=== PATIENT | male | born 1970 | race Caucasian/White ===

== ENCOUNTER 2019-01-01 22:42 | Emergency (ER) | payer MEDICAID ==
[~2019-01-01] VITALS: Ht 165.1 cm; Wt 75.0 kg
[2019-01-02 00:17] LABS: CHLORIDE 112 mEq/L (98-107)
[2019-01-02 00:29] LABS: ETHANOL BLOOD 416 mg/dL
[2019-01-02 00:36] LABS: BASOPHILS % 0.8 % (0.0-2.0); EOSINOPHILS % 4.3 % (0.0-5.0); LYMPHOCYTES % 47.4 % (20.0-50.0); MEAN CORPUSCULAR HEMOGLOBIN 29.2 pg (28.0-32.0); MEAN CORPUSCULAR VOLUME 90.4 fL (80.0-94.0); MEAN PLATELET VOLUME 11.9 fl (7.4-10.4); MONOCYTES % 12.9 % (2.0-8.0); NEUTROPHILS % 34.6 % (40.0-76.0); RED BLOOD CELL COUNT 3.43 mill/uL (4.7-6.1); RED CELL DISTRIBUTION WIDTH 21.6 % (11.6-14.6)
[2019-01-02 00:53] LABS: PLATELET 33 x1000/uL (130-400)
[2019-01-02 06:48] VITALS: BP 115/77
== END 2019-01-02 06:53 | disposition home or self-care (01) ==
LOC: EDBD 22:42 → ER 22:42
DX: F10.129 Alcohol abuse with intoxication, unspecified (principal); D69.6 Thrombocytopenia, unspecified; R41.82 Altered mental status, unspecified
CPT/HCPCS: 36415; 70450; 71045; 80053; 80320; 82962; 85025; 99284; Z7610; G0480

== ENCOUNTER 2019-10-18 14:49 | Emergency (ER) | payer MEDICAID ==
[~2019-10-18] VITALS: Ht 177.8 cm; Wt 89.0 kg
[2019-10-18 15:02] VITALS: BP 132/89
== END 2019-10-18 15:39 | disposition left against medical advice (07) ==
LOC: ER 14:49
DX: F10.229 Alcohol dependence with intoxication, unspecified (principal); Z98.890 Other specified postprocedural states; Z79.899 Other long term (current) drug therapy; Y90.9 Presence of alcohol in blood, level not specified
CPT/HCPCS: 99283

== ENCOUNTER 2020-11-15 21:05 | Emergency (ER) | payer MEDICAID ==
[~2020-11-15] VITALS: Ht 162.6 cm; Wt 82.0 kg
[2020-11-16] MEDS ORDERED: SODIUM CHLORIDE 0.9% 1,000 ML IV ONE (00:45)
[2020-11-16 00:59] LABS: HEMATOCRIT. 33.8 % (42.0-52.0); HEMOGLOBIN. 11.1 g/dL (14.0-18.0); MEAN CORPUSCULAR HEMOGLOBIN 28.8 pg (28.0-32.0); MEAN CORPUSCULAR VOLUME 87.9 fL (80.0-94.0); MEAN PLATELET VOLUME 11.4 fl (7.4-10.4); RED BLOOD CELL COUNT 3.85 mill/uL (4.7-6.1); RED CELL DISTRIBUTION WIDTH 18.8 % (11.6-14.6)
[2020-11-16 01:01] LABS: CHLORIDE 110 mEq/L (98-107)
[2020-11-16 01:11] LABS: PLATELET 30 x1000/uL (130-400)
[2020-11-16 01:13] LABS: ETHANOL BLOOD 336 mg/dL
[2020-11-16 02:00] LABS: PLATELET ESTIMATE MARKEDLY DECREASED
[2020-11-16 02:31] LABS: *AMPHETAMINES SCREEN URINE NEGATIVE (NEGATIVE); *BARBITURATES SCREEN URINE NEGATIVE (NEGATIVE)
[2020-11-16 02:33] LABS: *BENZODIAZEPINES SCREEN URINE NEGATIVE (NEGATIVE); *COCAINE SCREEN URINE NEGATIVE (NEGATIVE); CANNABINOID URINE SCREEN NEGATIVE (NEGATIVE); METHADONE URINE SCREEN NEGATIVE (NEGATIVE); OPIATES URINE SCREEN NEGATIVE (NEGATIVE); PHENCYCLIDINE URINE SCREEN NEGATIVE (NEGATIVE)
[2020-11-16 05:40] VITALS: BP 114/74
== END 2020-11-16 05:40 | disposition home or self-care (01) ==
LOC: ER 21:09
DX: F10.129 Alcohol abuse with intoxication, unspecified (principal); Y90.7 Blood alcohol level of 200-239 mg/100 ml; E11.9 Type 2 diabetes mellitus without complications
CPT/HCPCS: 36415; 70450; 80053; 80305; 80320; 82962; 85025; 93005; 96360; 99285; J7030; G0480

== ENCOUNTER 2020-11-20 11:12 | Emergency (ER) | payer MEDICAID ==
[~2020-11-20] VITALS: Ht 172.7 cm; Wt 77.0 kg
[2020-11-20] MEDS ORDERED: ONDANSETRON HCL 4MG/2ML INJ IV STA (12:57)
[2020-11-20 13:00] LABS: BASOPHILS % 0.5 % (0.0-2.0); EOSINOPHILS % 3.4 % (0.0-5.0); HEMATOCRIT. 40.2 % (42.0-52.0); HEMOGLOBIN. 13.2 g/dL (14.0-18.0); MEAN CORPUSCULAR HEMOGLOBIN 29.3 pg (28.0-32.0); MEAN CORPUSCULAR VOLUME 89.3 fL (80.0-94.0); MEAN PLATELET VOLUME 6.9 fl (7.4-10.4); MONOCYTES % 10.6 % (2.0-8.0); NEUTROPHILS % 46.5 % (40.0-76.0); RED CELL DISTRIBUTION WIDTH 19.7 % (11.6-14.6)
[2020-11-20] MEDS ORDERED: SODIUM CHLORIDE 0.9% 1,000 ML IV ONE (13:00)
[2020-11-20] MEDS ORDERED: ACETAMINOPHEN 325MG TABLET PO ONE (13:00)
[2020-11-20 13:11] LABS: PROTHROMBIN TIME 10.5 sec (9.6-11.0)
[2020-11-20 13:56] LABS: PLATELET ESTIMATE MARKEDLY DECREASED
[2020-11-20 13:58] LABS: PLATELET 18 x1000/uL (130-400)
[2020-11-20 15:39] LABS: CHLORIDE 111 mEq/L (98-107)
[2020-11-20 15:51] LABS: ETHANOL BLOOD 361 mg/dL
[2020-11-20 16:58] LABS: CLARITY URINE CLEAR (CLEAR); COLOR URINE YELLOW (YELLOW); KETONES URINE NEGATIVE (NEGATIVE); LEUKOCYTE ESTERASE URINE NEGATIVE (NEGATIVE); NITRITE URINE NEGATIVE (NEGATIVE); OCCULT BLOOD URINE NEGATIVE (NEGATIVE); PROTEIN URINE NEGATIVE (NEGATIVE); SPECIFIC GRAVITY URINE 1.018 (1.005-1.030)
[2020-11-20 17:12] LABS: *BARBITURATES SCREEN URINE NEGATIVE (NEGATIVE); *BENZODIAZEPINES SCREEN URINE NEGATIVE (NEGATIVE)
[2020-11-20 17:14] LABS: *AMPHETAMINES SCREEN URINE NEGATIVE (NEGATIVE); *COCAINE SCREEN URINE NEGATIVE (NEGATIVE); CANNABINOID URINE SCREEN NEGATIVE (NEGATIVE); METHADONE URINE SCREEN NEGATIVE (NEGATIVE); OPIATES URINE SCREEN NEGATIVE (NEGATIVE); PHENCYCLIDINE URINE SCREEN NEGATIVE (NEGATIVE)
[2020-11-20 17:58] VITALS: BP 107/58
== END 2020-11-20 18:35 | disposition home or self-care (01) ==
LOC: ER 11:12
DX: R51.9 Headache, unspecified (principal); F10.129 Alcohol abuse with intoxication, unspecified; R47.81 Slurred speech; E11.9 Type 2 diabetes mellitus without complications; E86.0 Dehydration; Y90.8 Blood alcohol level of 240 mg/100 ml or more
CPT/HCPCS: 36415; 70450; 71045; 80053; 80305; 80320; 81003; 83690; 84484; 85025; 85610; 96361; 96374; 99285; J2405; J7030; G0480

== ENCOUNTER 2021-09-23 17:35 | Emergency (ER) | payer MEDICAID ==
[~2021-09-23] VITALS: Ht 167.6 cm; Wt 68.0 kg
[2021-09-23 17:39] VITALS: BP 130/80
== END 2021-09-23 18:25 | disposition left against medical advice (07) ==
LOC: ER 17:35
DX: Z53.21 Procedure and treatment not carried out due to patient leaving prior to being seen by health care provider (principal); E11.9 Type 2 diabetes mellitus without complications; I10 Essential (primary) hypertension; Z88.6 Allergy status to analgesic agent; Z86.19 Personal history of other infectious and parasitic diseases

== ENCOUNTER 2022-06-03 19:37 | Emergency (ER) | payer MEDICAID ==
[~2022-06-03] VITALS: Ht 177.8 cm; Wt 80.0 kg
[2022-06-03] MEDS ORDERED: VISCOUS LIDOCAINE 2% 15 ML UDC PO STA (21:45)
[2022-06-03] MEDS ORDERED: SODIUM CHLORIDE 0.9% 1,000 ML IV ONE (21:45)
[2022-06-03] MEDS ORDERED: DICYCLOMINE 10 MG/5 ML ORAL SYR PO STA (21:45)
[2022-06-03] MEDS ORDERED: FAMOTIDINE 20MG/2ML VIAL IV STA (21:45)
[2022-06-03] MEDS ORDERED: MAGNESIUM/ALUMINUM HYDROXIDE/SIMETHICONE 30ML UDC PO STA (21:45)
[2022-06-03 23:27] LABS: BASOPHILS % 0.6 % (0.0-2.0); EOSINOPHILS % 3.9 % (0.0-5.0); HEMATOCRIT. 36.2 % (42.0-52.0); HEMOGLOBIN. 11.6 g/dL (14.0-18.0); LYMPHOCYTES % 41.8 % (20.0-50.0); MEAN CORPUSCULAR HEMOGLOBIN 30.4 pg (28.0-32.0); MEAN CORPUSCULAR VOLUME 94.9 fL (80.0-94.0); MEAN PLATELET VOLUME 11.6 fl (7.4-10.4); MONOCYTES % 13.3 % (2.0-8.0); NEUTROPHILS % 40.4 % (40.0-76.0); PLATELET 96 x1000/uL (130-400); RED BLOOD CELL COUNT 3.82 mill/uL (4.7-6.1); RED CELL DISTRIBUTION WIDTH 18.1 % (11.6-14.6)
[2022-06-03 23:50] LABS: CHLORIDE 106 mEq/L (98-107)
[2022-06-04 00:02] LABS: ETHANOL BLOOD 219 mg/dL
[2022-06-04] MEDS ORDERED: MAGNESIUM/ALUMINUM HYDROXIDE/SIMETHICONE 30ML UDC PO NR (00:30)
[2022-06-04] MEDS ORDERED: FAMOTIDINE 20MG/2ML VIAL IV NR (00:30)
[2022-06-04] MEDS ORDERED: VISCOUS LIDOCAINE 2% 15 ML UDC PO NR (00:30)
[2022-06-04] MEDS ORDERED: DICYCLOMINE 10 MG/5 ML ORAL SYR PO NR (00:30)
[2022-06-04 06:15] VITALS: BP 100/58
== END 2022-06-04 07:42 | disposition home or self-care (01) ==
LOC: ER 19:37
DX: F10.229 Alcohol dependence with intoxication, unspecified (principal); K29.70 Gastritis, unspecified, without bleeding; I10 Essential (primary) hypertension; E78.00 Pure hypercholesterolemia, unspecified; Y90.7 Blood alcohol level of 200-239 mg/100 ml; Z59.00 Homelessness unspecified; Z86.19 Personal history of other infectious and parasitic diseases; Z88.6 Allergy status to analgesic agent
CPT/HCPCS: 36415; 71045; 80053; 80320; 83690; 84484; 85025; 93005; 96361; 96374; 99285; J3490; J7030; Z7610; G0480

== ENCOUNTER 2024-04-25 22:28 | Emergency (ER) | payer MEDICAID ==
[~2024-04-25] VITALS: Ht 167.6 cm; Wt 75.0 kg
[2024-04-25 22:33] VITALS: BP 122/83; PULSE 104; TEMP 98.3; O2SAT 100
[2024-04-25] MEDS ORDERED: MAGNESIUM/ALUMINUM HYDROXIDE/SIMETHICONE 30ML UDC PO ONE (23:00)
[2024-04-25] MEDS ORDERED: FAMOTIDINE 20MG TABLET PO ONE (23:00)
[2024-04-25 23:11] LABS: BASOPHILS % 1.7 % (0.0-2.0); EOSINOPHILS % 2.5 % (0.0-5.0); HEMATOCRIT. 34.7 % (42.0-52.0); HEMOGLOBIN. 11.7 g/dL (14.0-18.0); LYMPHOCYTES % 36.9 % (20.0-50.0); MEAN CORPUSCULAR HEMOGLOBIN 32.9 pg (28.0-32.0); MEAN CORPUSCULAR HGB CONC 33.7 g/dL (31.0-37.0); MEAN CORPUSCULAR VOLUME 97.7 fL (80.0-94.0); MEAN PLATELET VOLUME 10.8 fl (7.4-10.4); MONOCYTES % 12.3 % (2.0-8.0); NEUTROPHILS % 46.6 % (40.0-76.0); PLATELET 55 x1000/uL (130-400); RED BLOOD CELL COUNT 3.55 mill/uL (4.7-6.1); RED CELL DISTRIBUTION WIDTH 20.3 % (11.6-14.6)
[2024-04-25 23:28] LABS: CHLORIDE 104 mEq/L (98-107); POTASSIUM 3.7 mEq/L (3.5-5.1); SODIUM 144 mEq/L (136-145)
[2024-04-25 23:29] LABS: CALCIUM 8.7 mg/dL (8.7-10.4); CARBON DIOXIDE 28 mEq/L (21-32)
[2024-04-25 23:34] LABS: CREATININE 0.7 mg/dL (0.6-1.3); GLUCOSE 85 mg/dL (70-105); UREA NITROGEN BLOOD 16 mg/dL (9-23)
[2024-04-25 23:36] LABS: ALANINE AMINOTRANSFERASE 47 IU/L (10-49); ALBUMIN 4.1 g/dL (3.2-4.8); ASPARTATE AMINOTRANSFERASE 95 IU/L (<34); BILIRUBIN DIRECT 0.2 mg/dL (<=3.0)
[2024-04-25 23:37] LABS: BILIRUBIN TOTAL 0.7 mg/dL (0.1-1.0); PROTEIN TOTAL 7.6 g/dL (6.0-8.3)
[2024-04-26] MEDS: MAGNESIUM/ALUMINUM HYDROXIDE/SIMETHICONE 30ML UDC PO NR (02:28)
[2024-04-26] MEDS: FAMOTIDINE 20MG TABLET PO NR (02:28)
[2024-04-26] MEDS ORDERED: FAMO-135 MT (02:36)
[2024-04-26 03:00] VITALS: RESP 17
== END 2024-04-26 07:25 | disposition home or self-care (01) ==
LOC: ER 22:28
DX: K29.20 Alcoholic gastritis without bleeding (principal); E11.9 Type 2 diabetes mellitus without complications; I10 Essential (primary) hypertension; F10.229 Alcohol dependence with intoxication, unspecified; Z88.6 Allergy status to analgesic agent; Y90.9 Presence of alcohol in blood, level not specified
CPT/HCPCS: 80076; 80048; 83690; 85025; 36415; 99283; Z7610

== ENCOUNTER 2024-07-22 18:22 | Emergency (ER) | payer MEDICAID ==
[~2024-07-22] VITALS: Ht 172.7 cm; Wt 75.0 kg
[~2024-07-22 18:22] MED LIST: FAMO-135 MT
[2024-07-22 18:26] VITALS: O2SAT 100
[2024-07-22 20:22] LABS: BASOPHILS % 1.7 % (0.0-2.0); EOSINOPHILS % 2.1 % (0.0-5.0); HEMATOCRIT. 36.6 % (42.0-52.0); LYMPHOCYTES % 44.4 % (20.0-50.0); MEAN CORPUSCULAR HEMOGLOBIN 31.5 pg (28.0-32.0); MEAN CORPUSCULAR HGB CONC 32.9 g/dL (31.0-37.0); MEAN CORPUSCULAR VOLUME 95.6 fL (80.0-94.0); MEAN PLATELET VOLUME 10.6 fl (7.4-10.4); MONOCYTES % 7.2 % (2.0-8.0); NEUTROPHILS % 44.6 % (40.0-76.0); PLATELET 70 x1000/uL (130-400); RED BLOOD CELL COUNT 3.82 mill/uL (4.7-6.1); RED CELL DISTRIBUTION WIDTH 19.6 % (11.6-14.6); WHITE BLOOD COUNT 2.2 x1000/uL (4.5-11.0)
[2024-07-22 20:32] LABS: PROTHROMBIN TIME 10.7 sec (9.6-11.0)
[2024-07-22 20:41] LABS: CHLORIDE 107 mEq/L (98-107); POTASSIUM 3.9 mEq/L (3.5-5.1); SODIUM 147 mEq/L (136-145)
[2024-07-22 20:42] LABS: CARBON DIOXIDE 27 mEq/L (21-32)
[2024-07-22 20:43] LABS: CALCIUM 8.7 mg/dL (8.7-10.4)
[2024-07-22 20:47] LABS: CREATININE 0.7 mg/dL (0.6-1.3); GLUCOSE 112 mg/dL (70-105)
[2024-07-22 20:48] LABS: UREA NITROGEN BLOOD 17 mg/dL (9-23)
[2024-07-22 20:57] LABS: ETHANOL BLOOD 340 mg/dL (<10)
[2024-07-22 21:26] VITALS: TEMP 36.89184
[2024-07-23 02:03] VITALS: BP 101/55; PULSE 79; RESP 19; O2SAT 98
== END 2024-07-23 03:00 | disposition home or self-care (01) ==
LOC: ER 18:22
DX: G92.9 Unspecified toxic encephalopathy (principal); F10.129 Alcohol abuse with intoxication, unspecified; E11.9 Type 2 diabetes mellitus without complications; I10 Essential (primary) hypertension; Z88.6 Allergy status to analgesic agent; Z79.899 Other long term (current) drug therapy; Y90.9 Presence of alcohol in blood, level not specified
CPT/HCPCS: 36415; 80048; 80320; 85025; 99283; G0480

== ENCOUNTER 2025-03-14 20:18 | Inpatient (IN) | payer MEDICAID ==
[~2025-03-14] VITALS: Ht 172.7 cm; Wt 72.1 kg
[~2025-03-14 20:18] MED LIST changes: +CHLO25CA10 PO; +LACT10SO7 PO; +THIA100T72 PO
[2025-03-14 20:37] VITALS: O2SAT 96
[2025-03-14 22:10] LABS: BASOPHILS % 0.6 % (0.0-2.0); EOSINOPHILS % 2.5 % (0.0-5.0); HEMATOCRIT. 38.3 % (42.0-52.0); HEMOGLOBIN. 11.5 g/dL (14.0-18.0); LYMPHOCYTES % 34.9 % (20.0-50.0); MEAN PLATELET VOLUME 11.7 fl (7.4-10.4); MONOCYTES % 12.5 % (2.0-8.0); NEUTROPHILS % 49.5 % (40.0-76.0); PLATELET 66 x1000/uL (130-400); RED BLOOD CELL COUNT 3.57 mill/uL (4.7-6.1); RED CELL DISTRIBUTION WIDTH 18.8 % (11.6-14.6)
[2025-03-14 22:22] LABS: CREATININE 0.6 mg/dL (0.6-1.3)
[2025-03-14 22:23] LABS: ETHANOL BLOOD 233 mg/dL (<10); UREA NITROGEN BLOOD 7 mg/dL (9-23)
[2025-03-14 22:24] LABS: ASPARTATE AMINOTRANSFERASE 35 IU/L (<34)
[2025-03-14 22:25] LABS: BILIRUBIN DIRECT 0.1 mg/dL (<=3.0); BILIRUBIN TOTAL 0.3 mg/dL (0.1-1.0); PROTEIN TOTAL 7.2 g/dL (6.0-8.3)
[2025-03-15] MEDS: FOLIC ACID 1 MG, THIAMINE HCL 100 MG, MVI, ADULT NO.1 10 ML in DEXTROSE 5% WATER 1,000 ML IV ONE (01:29)
[2025-03-15 02:20] VITALS: BP 122/79; PULSE 89; RESP 19; TEMP 36.8072
[2025-03-15 04:00] VITALS: BP 100/55; PULSE 93; RESP 18; TEMP 37; O2SAT 97
[2025-03-15] MEDS ORDERED: CHLORDIAZEPOXIDE 25MG CAPSULE PO PRN (06:00)
[2025-03-15] MEDS ORDERED: DEXTROSE 50% WATER 50ML SYRINGE IV PRN ×2 (06:00→11:00)
[2025-03-15] MEDS: BLOOD SUGAR DIAGNOSTIC STRIP TEST SCH (07:10)
[2025-03-15] MEDS: INSULIN LISPRO 100 UNITS/ML SUBCUT SCH (07:40)
[2025-03-15 08:00] VITALS: BP 116/63; PULSE 93; RESP 20; TEMP 36.7; O2SAT 94
[2025-03-15] MEDS: PANTOPRAZOLE 40MG DR TABLET PO SCH (09:28)
[2025-03-15] MEDS: THIAMINE HCL 100MG TABLET PO SCH (09:29)
[2025-03-15] MEDS: FOLIC ACID 1MG TABLET PO SCH (09:29)
[2025-03-15 09:47] LABS: *AMPHETAMINES SCREEN URINE NEGATIVE (NEGATIVE); *BARBITURATES SCREEN URINE PRESUMPTIVE POSITIVE (NEGATIVE); *BENZODIAZEPINES SCREEN URINE PRESUMPTIVE POSITIVE (NEGATIVE); *COCAINE SCREEN URINE NEGATIVE (NEGATIVE); CANNABINOID URINE SCREEN NEGATIVE (NEGATIVE); ECSTASY MDMA SCREEN URINE NEGATIVE (NEGATIVE); METHADONE URINE SCREEN NEGATIVE (NEGATIVE); OPIATES URINE SCREEN NEGATIVE (NEGATIVE); PHENCYCLIDINE URINE SCREEN NEGATIVE (NEGATIVE)
[2025-03-15] MEDS ORDERED: ONDANSETRON HCL 4MG/2ML INJ IV PRN (11:00)
[2025-03-15] MEDS ORDERED: FOLI-43 PO (11:01)
[2025-03-15] MEDS ORDERED: FERR325T30 PO (11:01)
[2025-03-15] MEDS ORDERED: NALT50TA6 PO (11:01)
[2025-03-15 12:00] VITALS: BP 103/62; PULSE 89; RESP 18; TEMP 36.7; O2SAT 96
[2025-03-15] MEDS ORDERED: BLOOD SUGAR DIAGNOSTIC STRIP TEST SCH (12:10)
[2025-03-15] MEDS ORDERED: INSULIN LISPRO 100 UNITS/ML SUBCUT SCH (12:40)
[2025-03-15 16:00] VITALS: BP 106/72; PULSE 85; RESP 18; TEMP 36.2; O2SAT 95
[2025-03-15 17:49] LABS: HEPATITIS A AB IGM NEGATIVE (Negative)
[2025-03-15 17:51] LABS: HEPATITIS B CORE AB IGM NEGATIVE (Negative); HEPATITIS C AB NON REACTIVE (Neg) (Negative)
[2025-03-15] MEDS: CHLORDIAZEPOXIDE 25MG CAPSULE PO SCH (21:05)
[2025-03-16] VITALS: BP 110/78; PULSE 80; RESP 20; TEMP 36.9; O2SAT 95
[2025-03-16 06:30] VITALS: BP 109/76; PULSE 92; RESP 22; TEMP 36.8; O2SAT 93
[2025-03-16 06:57] LABS: CREATININE 0.6 mg/dL (0.6-1.3); UREA NITROGEN BLOOD 9 mg/dL (9-23)
[2025-03-16] MEDS ORDERED: NALOXONE HCL 0.4MG/ML VIAL IV PRN (07:00)
[2025-03-16] MEDS: HYDROCODONE/ACETAMINOPHEN 10/325MG TABLET PO PRN (07:03)
[2025-03-16 08:00] VITALS: BP 116/75; PULSE 79; RESP 16; TEMP 36.6; O2SAT 96
[2025-03-16] MEDS: FOLIC ACID 1MG TABLET PO SCH (08:19)
[2025-03-16] MEDS: MULTIVITAMINS,THER W-MINERALS TABLET PO SCH (08:19)
[2025-03-16] MEDS: NALTREXONE HCL 50MG TABLET PO SCH (08:19)
[2025-03-16] MEDS: PANTOPRAZOLE SODIUM 40 MG/VIAL IV SCH (08:19)
[2025-03-16] MEDS ORDERED: THIAMINE HCL 100MG TABLET PO SCH (09:00)
[2025-03-16 11:09] LABS: HEMATOCRIT. 36.4 % (42.0-52.0); HEMOGLOBIN. 11.8 g/dL (14.0-18.0); MEAN PLATELET VOLUME 11.9 fl (7.4-10.4); PLATELET 82 x1000/uL (130-400); RED BLOOD CELL COUNT 3.69 mill/uL (4.7-6.1); RED CELL DISTRIBUTION WIDTH 17.7 % (11.6-14.6)
[2025-03-16 12:00] VITALS: BP 116/84; PULSE 84; RESP 18; TEMP 36.6; O2SAT 97
[2025-03-16] MEDS ORDERED: CHLO25CA10 PO (13:55)
[2025-03-16] MEDS ORDERED: FAMO-135 MT (13:55)
[2025-03-16] MEDS ORDERED: FERR325T30 PO (13:55)
[2025-03-16] MEDS ORDERED: FOLI-43 PO (13:55)
[2025-03-16 14:07] VITALS: BP 116/83; PULSE 78; RESP 16; TEMP 97.8
[2025-03-16 14:48] LABS: BAND% 3.0 % (1.0-6.0); EOSINOPHILS % MANUAL 1.0 % (0.0-5.0); LYMPHOCYTES % MANUAL 30.0 % (20.0-50.0); MONOCYTES % MANUAL 9.0 % (2.0-8.0); NEUTROPHILS % MANUAL 57.0 % (45.0-75.0)
[2025-03-16 14:50] LABS: PLATELET ESTIMATE DECREASED
== END 2025-03-16 16:50 | disposition home or self-care (01) | DRG 775 ==
LOC: ER 20:18 → EDBEDREQ 23:24 → EDBEDREQTM 23:24 → ENRESERV 03-15 00:39 → 8WST 03-15 02:04
PROVIDERS: ADMIT Internal Medicine; ATTEND Internal Medicine
DX: F10.229 Alcohol dependence with intoxication, unspecified (principal); E11.9 Type 2 diabetes mellitus without complications; G89.29 Other chronic pain; I10 Essential (primary) hypertension; Z91.148 Patient's other noncompliance with medication regimen for other reason; Z88.6 Allergy status to analgesic agent; Z87.19 Personal history of other diseases of the digestive system; Z79.899 Other long term (current) drug therapy
CPT/HCPCS: 36415; 71045; 73030; 80048; 80076; 80305; 80320; 82962; 83036; 83735; 85025; 86705; 86709; 87340; 93005; 96365; 99285; J2470; J3411; J3490; J7070; G0480